=== PATIENT | male | born 1960 | race Caucasian/White ===

== ENCOUNTER → 2022-12-19 10:15 | Outpatient (BNVA) | payer MEDICARE, MEDICAID, SELFPAY | PROVIDERS: Family Provider Family Medicine; PCP Nurse Practitioner Family; Referring Provider Nurse Practitioner Family; Visit Provider Internal Medicine | DX: N20.0 Calculus of kidney (principal); D35.00 Benign neoplasm of unspecified adrenal gland; E27.9 Disorder of adrenal gland, unspecified | CPT/HCPCS: 36415; 80053; 82088; 82310; 83970; 84244; 99204 ==

== ENCOUNTER 2022-12-23 10:20 | Outpatient (CLI) | payer MEDICARE, MEDICAID, SELFPAY ==
[2022-12-23 11:22] LABS: Urine Creatinine 54 mg/dL (39-259)
[2022-12-23 11:38] LABS: Total Volume Urine 2300 ml
[2022-12-28 19:01] LABS: Calculated Total (E+NE) 46 mcg/24 h (26-121)
[2022-12-31 14:04] LABS: Free Cortisol Urine 50.2 mcg/24 h (4.0-50.0); Total Urine 2300 mL
== END 2022-12-23 10:21 | disposition home or self-care (01) ==
LOC: LAB 10:24
PROVIDERS: PCP Nurse Practitioner Family; Visit Provider Internal Medicine
DX: D35.00 Benign neoplasm of unspecified adrenal gland (principal); N20.0 Calculus of kidney
CPT/HCPCS: 82384; 82530; 82570

== ENCOUNTER → 2023-12-29 07:40 | Outpatient (BNVA) | payer MEDICAID, SELFPAY | PROVIDERS: PCP Nurse Practitioner Family; Visit Provider Internal Medicine | DX: E27.9 Disorder of adrenal gland, unspecified (principal); D35.00 Benign neoplasm of unspecified adrenal gland; N20.0 Calculus of kidney; I10 Essential (primary) hypertension | CPT/HCPCS: 36415; 80053; 82088; 84244; 99214 ==